=== PATIENT | female | born 1990 | race Caucasian/White ===

== ENCOUNTER 2018-03-03 08:00 | Inpatient (IN) ==
[2018-03-03] MEDS ORDERED: Ondansetron 4 MG/2 ML VIAL IVP PRN (08:42)
[2018-03-03] MEDS ORDERED: *HR* Nalbuphine 10 MG/ML AMPUL IVP PRN (08:42)
[2018-03-03] MEDS ORDERED: Metoclopramide 10 MG/2 ML VIAL IVP PRN (08:42)
[2018-03-03] MEDS ORDERED: Famotidine 20 MG/2 ML VIAL IVP PRN (08:42)
[2018-03-03] MEDS ORDERED: Naloxone 0.4 MG/ML INJ IVP PRN (08:42)
[2018-03-03] MEDS ORDERED: Ringers Solution, Lactated 1,000 ML IVC SCH (08:45)
--- NOTE | 2018-03-03 08:47 | OB/GYN History & Physical ---
Date of Encounter: 03/03/18 Time of Encounter: 08:44 Assessment and Plan (1) and not yet delivered in third trimester Current visit: Yes Status: Acute (2) 39 weeks gestation of Current visit: Yes Status: Acute (3) Elective induction of labor planned Current visit: Yes Status: Acute Patient be induced with a Ball catheter and Cytotec vaginally plan is to anticipate vaginal delivery History of Present Illness HPI: Ms. Chiu is a 28 year old female 2 para 1 at 39-6/7 weeks who presented for an induction of labor secondary term with favorable cervix. Patient has had a relatively unremarkable course has gained some weight with peripheral edema PIH labs all normal. She has been having occasional contractions but is not able to time them and is not complaining of any vaginal bleeding discharge. Patient did have a ultrasound on February 05 baby weight 3098 g which is 80th percentile with an amniotic fluid index of 16 cm. She was GBS positive and rubella positive, Varicella indeterminant Past Med Surg Social Fam HX - Past Medical History Source: patient, old records reviewed Medical history: no medical history Psychiatric history: no psych history - Past Surgical History Surgical History: other (oral surgery) - Social History Smoking Status: Never smoker Smokeless Tobacco Status: No Alcohol use: none Drug use: none Occupational status: employed Current living situation: Home - Independent Activity Level: Independent ambulation Recent Out of Country Travel Within the Last 8 Weeks: No Exposure or Possible Exposure to Illness During Travel: No - Additional Family History Additional family history: Family history noncontributory Obstetrical History - Pregnancies : 2 Para: 1 Term: 1 : 0 Livin Medications and Allergies No Known Home Drugs 08/15/16 [History] 3 Allergy/AdvReac Type Severity Reaction Status Date / Time tramadol Allergy Hives Verified 08/15/16 17:16 Review of System OB All systems PM: reviewed and no additional remarkable complaints except as stated Exam - Constitutional Constitutional: well developed, well nourished, no acute distress - HEENT HEENT: EOMI, PERRL, Mucus Membranes Moist - Neck Neck exam: full ROM - Lungs Respiratory exam: CTAB - Cardiovascular Cardiovascular exam: RRR - Abdomen Abdomen: Present: bowel sounds normal, gravid ( heart tones 140s and reactive occasional contractions seen) - Cervix Dilation: 1 Effacement: 80 Station: -3 (Ball catheter placed to 40 mL balloon inflated. It was noted immediately upon insertion started having dark blood coming at the end of the catheter it was not slowing down catheter balloon was deflated and the Ball was removed no active bleeding was noted after the removal we will replace the catheter balloon was inflated to 30 mL with no bleeding at this time. 25 g of Cytotec will be placed vaginally it tones remained stable after 30-60 minutes.) Results All other labs normal.
[2018-03-03] MEDS ORDERED: Penicillin G Potassium 5,000,000 UNIT in 0.9 % Sodium Chloride Mini Bag 100 ML IVPB ONE (08:51)
[2018-03-03] MEDS ORDERED: miSOPROStol 25 MCG TABLET VG SCH (09:00)
[2018-03-03 09:05] LABS: Basophils % 0.5 %; Eosinophils # 0.2 K/mcL (0.0-0.6); Eosinophils % 2.8 %; Hematocrit 34.7 % (35.3-44.9); Hemoglobin 11.8 g/dL (11.5-15.4); Immature Granulocytes % 0.8 % (0-4); Lymphocytes # 1.9 K/mcL (0.6-4.6); Lymphocytes % 22.2 %; Mean Corpuscular Hemoglobin 30.1 pg (28.0-33.3); Mean Corpuscular Volume 88.5 fL (83.0-100.0); Mean Platelet Volume 11.2 fL (9.4-12.4); Monocytes # 0.6 K/mcL (0.0-1.3); Monocytes % 7.3 %; Neutrophils # 5.7 K/mcL (1.6-8.9); Platelet Count 203 K/mcL (140-400); Red Blood Count 3.92 M/mcL (3.82-4.97); Red Cell Distribution Width 14.1 % (11.5-14.5); Segmented Neutrophils % 66.4 %
[2018-03-03 09:29] LABS: Amphetamine Screen,Urine Negative ng/mL (Cutoff=1000); Barbiturate Screen,Urine Negative ng/mL (Cutoff=200); Benzodiazepines Screen,Urine Negative ng/mL (Cutoff=200); Cannabinoid Screen,Urine Negative ng/mL (Cutoff = 50); Cocaine Screen,Urine Negative ng/mL (Cutoff= 300); Opiate Screen,Urine Negative ng/mL (Cutoff=300); Phencyclidine Screen,Urine Negative ng/mL (Cutoff=25)
--- NOTE | 2018-03-03 09:44 | Anesthesia Evaluation PreOp ---
Date of Encounter: 03/03/18 Time of Encounter: 09:41 - Past History Planned Operation: (if needed) Cardiac History: Denies any Significant Hx Pulmonary History: Denies Any Significant HX SENIOR DESIGN ENGINEER History: Denies Any Significant HX Other Medical History: Other (anemia) Anesthesia History: No Prior Anesthetic Complications (never had any procedure requiring GA or NA; denies family h/o GA complications) : Yes Alcohol Use: none Drug use: none Medications and Allergies Ferrous Sulfate 325 mg PO DAILY 03/03/18 [History] Vitamins 1 / PO DAILY 03/03/18 [History] 3 Allergy/AdvReac Type Severity Reaction Status Date / Time tramadol Allergy Hives Verified 08/15/16 17:16 - Meds/Allergy Pre-op Review Medications Reviewed: Yes Allergies Reviewed: Yes Beta Blockers on Current Med List: No Anesthesia Results - Labs 03/03/18 08:40 Anesthesia Exam O2 Sat Height 1.7 m Weight 111.947 kg O2 Sat by Pulse Oximetry 99 Vital Signs Temp Pulse Resp BP Pulse Ox 97.7 F 85 14 116/68 99 03/03/18 08:43 03/03/18 08:43 03/03/18 08:43 03/03/18 08:43 03/03/18 08:43 NPO (# of Hours): solids > 8hrs Pain Scale: 0 Pain Scale Used: JacobsLinda (Faces) - HEENT Pupil (Motor): Pupils equal Mallampati: II Teeth: Normal Oral Opening: Greater than 3 - SENIOR DESIGN ENGINEER LOC: Oriented SENIOR DESIGN ENGINEER Motor: Normal RUE, Normal LUE, Normal RLE, Normal LLE, Normal Face SENIOR DESIGN ENGINEER Sensory: Normal: RUE, LUE, RLE, LLE, Face - Cardiac Rhythm: Regular Murmur: None - Pulmonary Breath Sounds: bilateral Clear Respiratory Effort: Symmetrical Anesthesia Assess/Plan ASA Score: 2 Modified [place] Scale for Level of Consciousness: Cooperative, oriented, and tranquil Anesthetic Plan: General (explained to patient that in the event of a STAT C- section, if patient does not have functioning epidural catheter, the only option is general anesthesia. R/B/A explained to patient and all questions answered. Pt does not want epidural at this time to mitigate risk of having GA in the event of stat C section), Regional (explained to patient that if C- section is non-STAT, then can perform single shot spinal anesthetic. R/B/A explained and all questions answered.) Autologous Blood: No Monitoring Plan: Standard Monitors Recovery Plan: PACU
[2018-03-03] MEDS ORDERED: Penicillin G Potassium 2,500,000 UNIT in 0.9 % Sodium Chloride 100 ML IVPB SCH (12:00)
[2018-03-03] MEDS ORDERED: Oxytocin 20 units/ LR 1000 mL 20 UNIT/1,000 ML BAG IVC ONE (13:59)
--- NOTE | 2018-03-03 17:26 | OB Labor Progress Note ---
Date of Encounter: 03/03/18 Time of Encounter: 14:30 Labor Progress Note - Subjective Subjective: Patient still comfortable really feeling contractions - Cervix Cervix: 2/80/-3 AROM small amt clear fluid - Heart Tones Heart Tones: heart tones 140s reactive - [place] Irena: Contractions irregular - Plan Plan: We will augment with Pitocin plan is to anticipate vaginal delivery
--- NOTE | 2018-03-03 17:29 | OB Labor Progress Note ---
Date of Encounter: 03/03/18 Time of Encounter: 17:27 Labor Progress Note - Subjective Subjective: Patient still comfortable states contractions still tolerable - Cervix Cervix: 2/80/-3 - Heart Tones Heart Tones: heart tones 140s and reactive - [place]: IUPC placed and contractions every 2 minutes - Plan Plan: Continue current care and anticipate vaginal delivery
[2018-03-03] MEDS: Penicillin G Potassium 2,500,000 UNIT in 0.9 % Sodium Chloride 100 ML IVPB SCH ×2 (18:50→23:09)
--- NOTE | 2018-03-03 20:09 | OB Labor Progress Note ---
Date of Encounter: 03/03/18 Time of Encounter: 20:00 Labor Progress Note - Subjective Subjective: Patient still comfortable hydatid laying in bed is standing at bedside. - Cervix Cervix: 3/80/-3 - Heart Tones Heart Tones: heart tones 140s reactive - [place]: Contractions every 1-2 minutes adequate greater than 240 Mccormick units - Plan Plan: Continue current care anticipate vaginal delivery
--- NOTE | 2018-03-04 01:12 | OB Labor Progress Note ---
Date of Encounter: 03/04/18 Time of Encounter: 01:10 Labor Progress Note - Subjective Subjective: Patient is still relatively comfortable did receive Nubain states contractions are occasionally uncomfortable and occasionally feeling pressure - Cervix Cervix: 3-4/80/-3 still very difficult to feel the head. - Heart Tones Heart Tones: heart tones 140s reactive - [place]: Contractions every 2 minutes greater than 240 Brickeys units - Plan Plan: Try positional changes again patient has made no cervical change and 5-6 hours. Did inform the patient we will give her approximately 2-4 more hours if she has not made any significant change at that time we will discuss section.
[2018-03-04] MEDS: Penicillin G Potassium 2,500,000 UNIT in 0.9 % Sodium Chloride 100 ML IVPB SCH ×2 (03:09→06:58)
--- NOTE | 2018-03-04 05:23 | OB Labor Progress Note ---
Date of Encounter: 03/04/18 Time of Encounter: 05:20 Labor Progress Note - Subjective Subjective: still not that uncomfortable and is not wanting an section at this time - Cervix Cervix: 3/80/-2 - Heart Tones Heart Tones: heart tones 140s reactive - [place]: Contractions every 10 minutes and adequate greater than 240 Thornton units - Plan Plan: Patient is 1 wait 2 more hours to be reassessed if does not make change at that point section will be called.
[2018-03-04] MEDS ORDERED: CeFAZolin Premix DUPLEX 2,000 MG/50 ML BAG IVPB ONE (07:00)
[2018-03-04] MEDS ORDERED: Bupivacaine/PF 0.75% in Dex 2 ML AMPUL INFILT ONE (07:29)
[2018-03-04] MEDS ORDERED: Lidocaine -MPF 2% 5 ML VIAL ONE (07:31)
--- NOTE | 2018-03-04 07:31 | OB/GYN Procedure Note ---
Section - Date of procedure: 03/04/18 Preop diagnosis: other (Intrauterine at 40-0/7 weeks, arrest of descent, cephalopelvic disproportion) Post-op diagnosis: same Procedure: primary low transverse Surgeon: Meet Waters Blood Loss: 500 Was there an orthodontic assistant present: Yes Bacteriology Research Assistant: Bharat Shaw ([email or web address]) Anesthesiologist: Jasmin Christian Air Defense Specialist: Frederick Cutler Anesthesia Type: Spinal section complications: none Disposition: L&D Recovery Room Specimens: Placenta - Infant (s) Infant A Infant Delivery Date: 03/04/18 Delivery Time: 08:16 Presentation: vertex Position: ROP Route of delivery: other ( section) Gender: Male Viability: Viable Pounds: 8 Ounces: 15 Gram Weight: 4.055 kg at 1 minute: 9 at 5 minutes: 9 Shoulder Dystocia: not encountered Specimens collected: cord blood Placenta: spontaneous Cord: 3 umbilical vessels - Narrative Narrative: Patient is a 28-year-old 2 para 1 at 40-0/7 weeks who presented for induction of labor secondary term with favorable cervix. Patient's care has been relatively unremarkable and patient wanted be delivered around the due date on admission patient did receive a Ball catheter with vaginal Cytotec catheter stayed in for approximately 4 hours when he came out patient was only 2 cm patient did need to be augmented with Pitocin patient started having adequate contractions greater than 240 Gilbert units and patient did not progress past 3 cm with a station of -2-3. Patient had arrested for approximately 12 hours at this station and dilation and finally agreed to allow us to perform a section. Patient is GBS positive has been receiving antibiotics. Procedure: Patient was taken to the operating room where spinal anesthesia was found be adequate. She was not dorsal supine position with a tilt prepped and draped in usual fashion. Timeout was then performed. A Pfannenstiel incision was made with scalpel and carried down to the underlying tissue to the fascia was identified. The fascia was nicked in midline extended laterally with the Watts scissors. The superior and inferior edges of the fascia grasped tented up and dissected off the rectus muscles. Rectus muscles were in midline parietal peritoneum was identified tented up and entered sharply. This was extended superiorly and inferiorly with Metzenbaum scissors. The bladder blade was inserted the vesicouterine peritoneum was identified tented up and entered sharply. This was extended laterally the bladder flap was created digitally. The lower uterine segment was incised with a scalpel and extended laterally with digital ablation. Membranes were then ruptured and 's head was delivered followed by the . The cord is clamped and cut was handed off to waiting pediatric team. Cord blood was collected and the placenta was then delivered spontaneously. Uterus was exteriorized cleaning all clots and debris and the low uterine segment was closed using 0 Vicryl in a running locking stitch by to let closure. Good hemostasis was noted uterus was returned to the abdomen the gutters were cleansed of all clots and debris and copiously irrigated with water. Neck bleeding was noted the fascia was closed using a #1 stratafix and the skin was closed using a 4-0 Vicryl subcuticular manner. All needles and sponge counts were correct 3 she did receive preoperative antibiotics, A sally dressing was then applied, she was taken to the recovery room in stable condition
[2018-03-04] MEDS ORDERED: *HR* Morphine Sulfate/PF 10 MG/10 ML AMPUL ONE (07:35)
[2018-03-04] MEDS ORDERED: EPHEDrine 50 MG/ML VIAL ONE (07:56)
[2018-03-04] MEDS ORDERED: *HR* Phenylephrine 10 MG/ML VIAL ONE (07:59)
[2018-03-04] MEDS ORDERED: Dexamethasone 4 MG/ML VIAL ONE (08:00)
[2018-03-04] MEDS ORDERED: Ondansetron 4 MG/2 ML VIAL ONE (08:00)
[2018-03-04] MEDS ORDERED: Ringers Solution, Lactated 1,000 ML ONE (08:03)
[2018-03-04] MEDS ORDERED: *HR* Promethazine 25 MG/ML VIAL IVP PRN (08:22)
[2018-03-04] MEDS ORDERED: Naloxone 0.4 MG/ML INJ IVP PRN ×2 (08:22→11:35)
[2018-03-04] MEDS ORDERED: *HR* Meperidine 25 MG/ML SYRINGE IVP PRN (08:22)
[2018-03-04] MEDS ORDERED: *HR* FentaNYL (PF) 100 MCG/2 ML VIAL IVP PRN (08:22)
[2018-03-04] MEDS ORDERED: Ondansetron 4 MG/2 ML VIAL IVP ONE (08:22)
[2018-03-04] MEDS ORDERED: *HR* OxyCODONE Immed Rel 5 MG TABLET PO PRN (08:22)
--- NOTE | 2018-03-04 08:27 | Anesthesia Procedures ---
Date of Encounter: 03/04/18 Time of Encounter: 07:53 Procedures: Anesthesia - Epidural/Spinal Patient ID/Chart reviewed: Yes Patient examined: Yes OB Eval: Gestational age: 39.6 OB Eval: : 2 OB Eval: Hx Para: 1 OB Eval: Contractions: Non-stressed pattern Consent Obtained: Yes Supplemental Oxygen: None/Room Air Site Prep: Aseptic Technique, Sterile prep and drape, Povidone-Iodine 1% Patient position: upright Local Anesthetic: Lidocaine 1% Amount of Local Anesthetic used: 5 Interspace Used: L3-L4 Blood: No CSF: Yes Paresthesia: No Spinal Needle Gauge: 25 Spinal Dose: Bupivicaine 0.75% morphine 300mcg Procedure: Intrathecal dose administered 2nd pass successfully in upright position without any immediate noted complications. VSS and FHT stable throughout. Vitals + FHT's: See anesthesia record.
[2018-03-04] MEDS ORDERED: Ringers Solution, Lactated 1,000 ML IVC SCH ×2 (08:30→11:35)
[2018-03-04] MEDS ORDERED: Oxytocin 20 units/ LR 1000 mL 20 UNIT/1,000 ML BAG IVC ONE (09:38)
[2018-03-04] MEDS ORDERED: Simethicone 80 MG TAB.CHEW PO PRN (11:35)
[2018-03-04] MEDS ORDERED: Oxytocin 20 units/ LR 1000 mL 20 UNIT/1,000 ML BAG IVC SCH (11:35)
[2018-03-04] MEDS ORDERED: Sennosides 8.6 MG TABLET PO PRN (11:35)
[2018-03-04] MEDS ORDERED: Metoclopramide 10 MG/2 ML VIAL IVP PRN (11:35)
[2018-03-04] MEDS ORDERED: NON-FORMULARY MEDICATION 1 EACH EACH (Ferrous Sulfate 325 MG) PO SCH (11:35)
[2018-03-04] MEDS ORDERED: Ondansetron 4 MG/2 ML VIAL IVP PRN (11:35)
[2018-03-04] MEDS ORDERED: PRENATAL VITAMINS PO SCH (11:35)
[2018-03-04] MEDS: Prenatal Vit/FA 1 EACH TABLET PO SCH (13:32)
--- NOTE | 2018-03-04 13:41 | Anesthesia Evaluation Post Op ---
Date of Encounter: 03/04/18 Time of Encounter: 13:10 - Vital Signs Vital Signs: Vital Signs Temperature 97.7 F 03/03/18 08:43 Pulse Rate 85 03/03/18 08:43 Respiratory Rate 14 03/03/18 08:43 Blood Pressure 116/68 03/03/18 08:43 O2 Sat by Pulse Oximetry 99 03/03/18 08:43 Temperature 98.6 F 03/04/18 13:15 Pulse Rate 81 03/04/18 13:15 Respiratory Rate 18 03/04/18 13:15 Blood Pressure 122/72 03/04/18 13:15 O2 Sat by Pulse Oximetry 96 03/04/18 13:15 - Lungs Lungs: Clear Ascult./Percussion - Airway Airway: Non-obstructed - Cardiovascular Regular Rate - Mental Status Mental Status: Alert & Oriented, Answers Appropriately - Pain Pain Scale: 2 Pain Scale used: Numeric (1 - 10) - Nausea Vomiting Nausea Vomiting: Not Present - Hydration Hydration: NPO, Ball catheter - Discharge PostOp Status: Transfer Patient to floor
[2018-03-05] MEDS: *HR* OxyCODONE/APAP 5/325 TABLET PO PRN ×4 (05:36→21:25)
[2018-03-05 05:50] LABS: Basophils # 0.1 K/mcL (0.0-0.2); Basophils % 0.4 %; Eosinophils % 0.3 %; Hematocrit 31.8 % (35.3-44.9); Hemoglobin 10.7 g/dL (11.5-15.4); Immature Granulocytes % 0.6 % (0-4); Lymphocytes # 1.6 K/mcL (0.6-4.6); Lymphocytes % 12.8 %; Mean Corpuscular HGB Conc 33.6 g/dL (31.6-35.5); Mean Corpuscular Hemoglobin 30.1 pg (28.0-33.3); Mean Corpuscular Volume 89.6 fL (83.0-100.0); Mean Platelet Volume 11.3 fL (9.4-12.4); Monocytes # 1.1 K/mcL (0.0-1.3); Monocytes % 8.5 %; Neutrophils # 9.7 K/mcL (1.6-8.9); Platelet Count 185 K/mcL (140-400); Red Blood Count 3.55 M/mcL (3.82-4.97); Red Cell Distribution Width 14.2 % (11.5-14.5); Segmented Neutrophils % 77.4 %
[2018-03-05] MEDS: Prenatal Vit/FA 1 EACH TABLET PO SCH (10:29)
--- NOTE | 2018-03-05 17:36 | OB/GYN Progress Note ---
Date of Encounter: 03/05/18 Time of Encounter: 17:33 - Assessment and Plan (1) Status post section Current Visit: Yes Status: Acute Stable POD#1 Continue current management Anticipate discharge tomorrow Subjective - Subjective Interval history: Pain well managed on po pain medication, voiding without difficulty, tolerates regular diet, Patient reports: appetite normal, voiding normally, pain well controlled, ambulating normally : doing well Objective - Vital Signs Latest vital signs: Vital Signs Temp Pulse Resp BP Pulse Ox 03/05/18 10:38 16 03/05/18 06:45 98.5 F 74 16 120/79 95 03/04/18 23:40 98.5 F 84 16 114/67 96 03/04/18 19:40 98.5 F 89 16 112/71 95 Intake and Output 03/05/18 03/05/18 03/05/18 07:59 15:59 23:59 Intake Total 800 / 800 Output Total 900 / 900 800 / 800 750 / 750 Balance -100 / -100 -800 / -800 -750 / -750 Intake: Oral 800 / 800 Output: Urine 800 / 800 750 / 750 Catheter 900 / 900 Other: Weight 109.8 kg Patient Weight 03/05/18 23:59 Weight 109.8 kg - Exam Lungs: bilateral: normal Chest: Normal S1, Normal S2 Extremities: Present: normal Abdomen: Present: normal appearance, soft Incision: Present: dressed (AUBREY) Uterus: Present: firm (U) - Labs Labs: Laboratory Results - last 24 hr 03/05/18 05:16 WBC 12.6 H RBC 3.55 L Hgb 10.7 L Hct 31.8 L MCV 89.6 MCH 30.1 MCHC 33.6 RDW 14.2 Plt Count 185 MPV 11.3 Immature Gran % 0.6 Seg Neutrophils % 77.4 Lymphocytes % 12.8 Monocytes % 8.5 Eosinophils % 0.3 Basophils % 0.4 Neutrophils # 9.7 H Lymphocytes # 1.6 Monocytes # 1.1 Eosinophils # 0.0 Basophils # 0.1
[2018-03-06] MEDS: *HR* OxyCODONE/APAP 5/325 TABLET PO PRN (06:32)
[2018-03-06] MEDS: Prenatal Vit/FA 1 EACH TABLET PO SCH (08:49)
--- NOTE | 2018-03-06 08:49 | Discharge Summary ---
Date of Encounter: 03/06/18 Time of Encounter: 08:44 - Discharge Diagnosis (1) Breast feeding status of mother Priority: Secondary Status: Acute Comments: support prn (2) Status post section Priority: Primary Status: Acute Comments: Continue routine postop/ care discharge home today follow up in 2 weeks for incision check - Discharge Medications Prescriptions: OxyCODONE/APAP 5/325 [Percocet 5/325 MG] 1 each PO Q4HR PRN 5 Days #30 tablet PRN Reason: Moderate pain 4-6 Ibuprofen [Motrin] 600 mg PO Q6HR PRN #60 tab PRN Reason: Pain Breast Pump [BREAST PUMP] 1 each .ROUTE AD #1 each Home Medications: Breast Pump [BREAST PUMP] 1 each .ROUTE AD #1 each 03/06/18 [Rx] Ibuprofen [Motrin] 600 mg PO Q6HR PRN #60 tab 03/06/18 [Rx] OxyCODONE/APAP 5/325 [Percocet 5/325 MG] 1 each PO Q4HR PRN 5 Days #30 tablet [Rx] Vit/FA 1 each PO DAILY tablet 03/06/18 [Rx] Simethicone [Gas-X] 80 mg PO TID PRN tab.chew 03/06/18 [Rx] Allergies/Adverse Reactions: 3 Allergy/AdvReac Type Severity Reaction Status Date / Time tramadol Allergy Hives Verified 08/15/16 17:16 Data Procedures and tests throughout hospitalization: Laboratory Tests 03/03/18 03/03/18 03/05/18 08:40 08:40 05:16 WBC 8.5 12.6 H RBC 3.92 3.55 L Hgb 11.8 10.7 L Hct 34.7 L 31.8 L MCV 88.5 89.6 MCH 30.1 30.1 MCHC 34.0 33.6 RDW 14.1 14.2 Plt Count 203 185 MPV 11.2 11.3 Immature Gran % 0.8 0.6 Seg Neutrophils % 66.4 77.4 Lymphocytes % 22.2 12.8 Monocytes % 7.3 8.5 Eosinophils % 2.8 0.3 Basophils % 0.5 0.4 Neutrophils # 5.7 9.7 H Lymphocytes # 1.9 1.6 Monocytes # 0.6 1.1 Eosinophils # 0.2 0.0 Basophils # 0.0 0.1 Urine Opiates Screen Negative Ur Barbiturates Screen Negative Ur Phencyclidine Scrn Negative Ur Amphetamines Screen Negative U Benzodiazepines Scrn Negative Urine Cocaine Screen Negative U Marijuana (THC) Screen Negative Ur Drug Screen Interp See Below Date of admission: 03/03/18 08:18 Primary care physician: PCP NONE Discharging clinician: Natalya Gilliland Anticipated date of discharge: 03/06/18 - Patient Status Disposition: Home, Self-Care Condition: Good Functional capacity at discharge: independent ambulation - Discharge Instructions Follow Up With: NONE,PCP [Primary Care Provider] - Meet Wang DO [Partnered Physician] - - Diet and Activity Activity: increase activity as tolerated Diet: regular diet Hospital Course Procedures: [facility] report reviewed by PATRICIA Falk Reason for admission: induction of labor Delivery: section Episiotomy: none Laceration: none Other procedures: none complications: none Discharge diagnosis: IUP at term delivered baby: male (breast feeding) Time Attestation: Total time spent providing and/or coordinating discharge services: Time Spent: Less than 30 minutes - VTE Reasons for not Prescribing Prophylaxis: Treatment not Indicated - Low risk for VTE Documentation of Mechanical Device: Intermittent pneumatic compression device Exam - Constitutional Vitals: Temp Pulse Resp BP Pulse Ox 98.2 F 87 14 125/79 98 03/05/18 19:49 03/05/18 19:49 03/05/18 19:49 03/05/18 19:49 03/05/18 19:49 General appearance IM: A&O X 3, pleasant, answers questions appropriately - Respiratory Respiratory exam: Present: CTAB - Cardiovascular Cardiovascular exam IM: Present: RRR, +S1, +S2 - GI/Abdominal GI/Abdominal exam IM: normal bowel sounds Incision: dry, dressed (AUBREY) - Uterine Tone: Firm Uterus Position: 2 Fingers Below Umbilicus, Midline - Extremities Exam Extremities exam IM: Present: full ROM, normal capillary refill, normal inspection - Neurological Exam Neurological exam: alert, oriented X3, reflexes normal
[2018-03-06] MEDS ORDERED: Ibuprofen 600 MG TABLET PO PRN (08:51)
[2018-03-06 10:37] VITALS: BP 119/73
== END 2018-03-06 13:15 | disposition home or self-care (01) | DRG 540 ==
LOC: 1NENULAB 08:18 → 1NENUOBS 03-04 11:20
PROVIDERS: ADMIT Obstetrics & Gynecology; ATTEND Obstetrics & Gynecology